=== PATIENT | male | born 2005 | race Caucasian/White ===

== ENCOUNTER 2024-12-06 11:14 | Emergency (ER) | payer OTHER, SELFPAY ==
--- NOTE | ~2024-12-06 | CT_ITS ---
CLINICAL HISTORY: head truama CT cervical spine without intravenous contrast Comparison: None Findings: Craniocervical junction: No occipital condylar fractures. No evidence of atlantooccipital dissociation. The anterior and posterior arch and lateral masses of C1 are intact. Odontoid and atlanto-dental interval intact. The pars interarticularis of C2 is intact. There is normal vertebral body heights with no evidence of compression fracture. There is normal cervical alignment. No locked or perched facets. No spinous process fractures. Lordotic curvature is straightened The retropharyngeal soft tissues are not widened. Segmental analysis as below (MR is more accurate in the evaluation of disc herniation and central canal pathology): C2-C3: No herniation or stenosis. C3-C4: No herniation or stenosis. C4-C5: No herniation or stenosis. C5-C6: No herniation or stenosis. C6-C7: No herniation or stenosis. C7-T1: No herniation or stenosis. The bones are without evidence of lytic or blastic lesion. Lung apices are unremarkable. Impression: 1. Negative CT cervical spine for acute process. This document has been electronically signed by: Alhaji Ascencio MD on 12/06/2024 12:51:02
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
[2024-12-06 11:19] VITALS: BP 114/51; PULSE 100; RESP 19; TEMP 36.6; O2SAT 98; BMI 27.1
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
--- OUTSIDE RECORDS SUMMARY | 2024-12-06 13:43 | XMS_ITS | Clinical Summary ---
Author Organization [facility] Address [address] [place] [address] Care Team Providers Care Tip Scourer Name Role Phone Nayeli Hardin Primary Care Provider [phone] Nayeli Hardin Unavailable [phone] Allergies No known active allergies Medications lidocaine (LIDODERM) 5 % patch Place 1 patch on the skin daily Remove & Discard patch within 12 hours or as directed by 30 patch 02/26/2021 Active Active Problems No known active problems Family History Medical History Relation Name Comments No Known Problems Father No Known Problems Mother Relation Name Status Comments Father Alive Mother Alive Social History Tobacco Use Types Packs/Day Years Used Date Smoking Tobacco: Never Smokeless Tobacco: Never Tobacco Cessation:Counseling Given: Not Answered Alcohol Use Standard Drinks/Week Comments Never 0 (1 standard drink = 0.6 oz pur e alcohol) Sex and Gender Information Value Date Recorded Sex Assigned at Not on file Legal Sex Male 4:07 PM EDT Gender Identity Not on file Sexual Orientation _I choose not to answer 02/27 11:52 AM EDT Last Filed Vital Signs Vital Sign Reading Time Taken Comments Blood Pressure 144/80 01/01/2023 9:49 AM EDT Pulse 63 01/01/2023 9:49 AM EDT Temperature 37.1 ??C (98.7 ??F) 01/01/2023 9:49 AM ED T Respiratory Rate 18 01/01/2023 9:49 AM EDT Oxygen Saturation 100% 01/01/2023 9:49 AM EDT Inhaled Oxygen Concentration - - Weight 86.2 kg (190 lb) 01/01/2023 9:49 AM EDT Height 172.7 cm (5' 8 ) 01/01/2023 9:49 AM EDT Body Mass Index 28.89 01/01/2023 9:49 AM EDT Plan of Treatment Health Maintenance Due Date Last Done Comments Annual Physical 2007 Hepatitis B Screening 2022 COVID-19 Vaccine ( season) 2024 03/02/2021, 02/07/2021 Influenza Vaccine (#1) 2024 , 06/13/2021, 05/31/2020, Additional history exists DTaP,Tdap,and Td Vaccines (7 - Td or Tdap) 04/19/2026 04/19/2016, 12/09/2009, 01/22/2006, Additional history exists HIB Vaccines Completed 08/15/2006, 07/12, 2004 Pneumococcal Vaccines 0-49 yrs (includes High Risk) Aged Out 08/15/2006, 07/23/2005, 03/13/2005, Additional history exists No longer eligible based on patient's age to complete this topic Hepatitis A Vaccine Completed 04/30/2018, 6 Insurance MEDICAID PCP PLAN MEDICAID [facility] Care Teams Tip Scourer Relationship Specialty Start Date End Date Nayeli Hardin [address] [place] [address], [address] [place] [address] PCP - General Pediatrics 02/26/21 Nayeli Hardin NPI: [id number] [place] [address], [address] [place] [address] 02/26/21
--- OUTSIDE RECORDS SUMMARY | 2024-12-06 13:43 | XMS_ITS | Clinical Summary ---
Author Organization [facility] Address [address] [place] [id number] Phone Care Team Providers Care Litigation Services Manager Name Role Phone Nayeli Hardin MD Primary Care Provider [phone] Allergies No known active allergies Medications Medication Sig Dispensed Refills Start Date End Date Status selenium sulfide 2.25 % ShamIndications:Sc alp psoriasis Apply topically 2 (two) times a week. 1 Bottle 3 10/03/2017 Active Additional Information Patient not taking.Reported on 03/11/2023 benzonatate (TESSALON) 100 MG capsuleIndications :Cough Take 1 capsule (100 mg total) by mouth 3 (three) times a day as needed for cough. 30 capsule 05/30/2021 Active Additional Information Patient not taking.Reported on 06/13/2021 methylPREDNISolone (MEDROL DOSEPACK) 4 mg tabletIndications: Poison moses dermatitis follow package directions 21 tablet 03/11/2023 Active Active Problems Problem Noted Date Diagnosed Date BMI 95th percentile or great er with athletic build, pediatric 05/31/2020 Assessment & Plan (05/31/2020 1:47 PM EDT): Intervention for addressing BMI: Weight monitoring and Dietary needs education. decrease nightime snacking, eat more fruits and vegetables and increase physical activity. See ordered lab screens. Reviewed lab orders are sent electronically to [facility] (outside laboratory). No lab slip or appointment needed. Emphasized importance of completing blood work screens. Once labs are drawn, we will send a patient gateway message or call when results received. Recommend follow up in Q6 months to discuss progress towards goals, interventions. Resolved Problems Problem Noted Date Diagnosed Date Resolved Date Elevated blood pressure reading 05/01/2018 06/13/2021 Overview (05/01/2018): Monitor and recheck Assessment & Plan (05/31/2020 1:50 PM EDT): Today - 120/72 - Systolic is at cutoff 2019 - 90/64 2018 - 120/64 Will monitor and recheck next year Pediatric overweight 04/19/2016 017 Overview (04/09/2017): Overweight in childhood Constipation 04/05/2015 04/09/2017 Overview (04/09/2017): Constipation Orbital cellulitis 12/11/2006 7 Overview (04/09/2017): L periorbital cellulitis Orbital cellulitis; L periorbital cellulitis Pneumonia 12/11/2006 04/09/2017 Overview (04/09/2017): Pneumonia Acute otitis media 06/26/2006 7 Overview (04/09/2017): 09/17/05, 04/11/06, 05/10/06, 06/03/06, 06/10/06, 06/26/07, 07/25/07, PE tubes 07/30/07 Acute otitis media; 09/17/05, 04/11/06, 05/10/06, 06/03/06, 06/10/06, 06/26/07, 07/25/07, PE tubes 07/30/07 Wheezing 07/23/2005 04/09/2017 Overview (10/01/2014): Wheeze; alb neb age 2 mos and 4 mos Immunizations Name Administration Dates Next Due COVID-19 (Pre-06/03) Pfizer Vaccine, mRNA, PF 03/02/2021,02/07/2021 DTaP, unspecified formulation 12/09/2009, 005 DTaP-Hep B-IPV 01/22/2006,07/23/2005,2004 HPV9 04/09/2017,05/02/2016 Hepatitis A, ped/adol, 2 dose 04/30/2018, 016 Hepatitis B, unspecified formulation 03/06/2005, 2004 Hib, unspecified formulation 08/15/2006,07/23/20 05,2004 Influenza Quadrivalent Prese rvative Free IM 06/19/2022,06/13/2021,05/31/2020,05/20,04/30/2018,04/19/2016,04/05/2015 ,04/06/2014,05/16/2013 Influenza Quadrivalent w/ Pr eservative IM 05/06/2017 Influenza, Unspecified Formulation 07/07,05/27/2007,06/26/2006,07/23 MMR 12/09/2009,01/22/2006 Meningococcal B, OMV (MenB-4C) 06/19/2022,2020 Meningococcal MCV4P 06/13/2021,04/19/2016 Pneumococcal conjugate, PCV 7 08/15/2006 ,07/23/2005,03/13/2005,12/11 Polio, Unspecified Formulation 12/09/2009,2004 Tdap 04/19/2016 Varicella 12/09/2009,01/22/2006 Family History Medical History Relation Comments Drug abuse Father Psoriasis Maternal Aunt Drug abuse Mother Arthritis Paternal Grandfather Hyperlipidemia Paternal Grandfather Stroke Paternal Grandfather Arthritis Paternal Grandmother Diabetes Paternal Grandmother Hyperlipidemia Paternal Grandmother Relation Status Comments Brother Alive Father Alive Maternal Aunt Mother Alive Paternal Grandfather Alive Paternal Grandmother Alive Sister Alive Social History Tobacco Use Types Packs/Day Years Used Date Smoking Tobacco: Never Passive Smoke Exposure: Yes Smokeless Tobacco: Never Tobacco Cessation:Counseling Given: Not Answered Comments:parent outside Alcohol Use Standard Drinks/Week Comments Never 0 (1 standard drink = 0.6 oz pur e alcohol) Child or Family Care Answer Date Record ed Do you have problems with on e of the following making it difficult for you to work, study, or receive health care? No 06/19/2022 Education Answer Date Recorded Are you interested in more education? Not on sunshine e 06/23/2024 Are you concerned about learning? Not on file 06/23/2024 No 06/23/2024 No 06/23/2024 Food Answer Date Recorded Within the past 6 months we worried whether our food would run out before we got money to buy more. Never True 06/19/2022 Within the past 6 months the food we bought just didn't last and we didn't have enough money to get more. Never True Residential Stability Answer Date Recor ded What is your housing situation today? I have estrella sing 06/19/2022 How many times have you move d in the past 12 months? Zero (I did not move) 06/19/2022 Paying for Meds Answer Date Recorded Do you have trouble paying for medicines? No 06/19/2022 Paying Utility Bills Answer Date Record ed Do you have trouble paying your heating or elect ricity bill? No 06/19/2022 Transportation Answer Date Recorded Has the lack of transportati on kept you from medical appointments or from getting medications? No 06/19/2022 Unemployment Answer Date Recorded Are you currently unemployed or working on a part-time or temporary basis, and looking for work? No 06/19/2022 Digital Access Answer Date Recorded No 01/01/2023 No 01/01/2023 Reliable internet access at home? Not on file 01/01/2023 Device with a working camera? Not on file Sex and Gender Information Value Date Recorded Sex Assigned at Male 05/20/2019 2:23 PM EDT Gender Identity Male 05/20/2019 2:23 PM EDT Sexual Orientation Straight 06/13/2021 10 :01 AM EDT Last Filed Vital Signs Vital Sign Reading Time Taken Comments Blood Pressure 120/70 06/19/2022 10:16 AM EST Pulse 70 06/19/2022 10:16 AM EST Temperature 36.8 ??C (98.2 ??F) 03/11/2023 10:40 AM E DT Respiratory Rate 16 06/19/2022 10:16 AM EST Oxygen Saturation - - Inhaled Oxygen Concentration - - Weight 88 kg (194 lb) 03/11/2023 10:40 AM EDT Height 172 cm (5' 7.72 ) 06/19/2022 10:16 AM EST Body Mass Index - - Plan of Treatment Health Maintenance Due Date Last Done Comments SMOKING Hx and SMOKELESS TOBACCO SCREENING 2017 ADOLESCENT UNIVERSAL LIPID SCREENING 2021 HEPATITIS B SCREENING 2022 HEPATITIS C SCREENING 2022 HIV ONE-TIME SCREENING (18-65 YEARS) 2022 BMI ASSESSMENT 06/19/2023 06/19/2022 DEPRESSION SCREENING 06/19/2023 06/19/2022, 06/19/20 DEVELOPMENTAL/BEHAVIORAL SCREENING (PHQ, PSC, or SWYC) 06/19/2023 06/19/2022, 06/19/2022, 06/19/2022 INFLUENZA VACCINE (#1) 2024 , 06/13/2021, 05/31/2020, Additional history exists COVID-19 VACCINE ( season) 2024 03/02/2021, 02/07/2021 COMBINED DTaP,Tdap,Td (7 - Td or Tdap) 04/19/2026 04/19/2016, 12/09/2009, 01/22/2006, Additional history exists HEPATITIS B VACCINES Completed 01/22/2006, 07/23/2005, 03/06/2005, Additional history exists HIB VACCINES Completed 08/15/2006, 07/12, 2004 PNEUMOCOCCAL VACCINES (0-49 years) Aged Out 08/15/2006, 07/23/2005, 03/13/2005, Additional history exists No longer eligible based on patient's age to complete this topic MMR VACCINES Completed 12/09/2009, 01/22/2006 VARICELLA VACCINES Completed 12/09/2009, 01/22/2006 HPV VACCINES Completed 04/09/2017, 05/02/2016 HEPATITIS A VACCINES Completed 04/30/2018, 05/02/20 16 MENINGOCOCCAL VACCINES (ACWY) Completed 06/13/2021, 04/19/2016 Medical Devices Not on file Care Teams Litigation Services Manager Relationship Specialty Start Date End Date Nayeli Hardin MD [address] [place] [address] [email or web address] PCP - General Pediatrics 03/12/17 Additional Source Comments The information contained in this document represents components of the legal health record. It is not the complete legal health record.[facility]
[2024-12-06 13:55] VITALS: BP 114/51; PULSE 100; RESP 19; TEMP 36.6; O2SAT 98
== END 2024-12-06 13:57 | disposition home or self-care (01) ==
PROVIDERS: Emergency Provider Emergency Medicine
DX: S06.0X0A Concussion without loss of consciousness, initial encounter (principal); W21.89XA Striking against or struck by other sports equipment, initial encounter; Y93.71 Activity, boxing; Y92.9 Unspecified place or not applicable; Y99.9 Unspecified external cause status; R11.2 Nausea with vomiting, unspecified; R51.9 Headache, unspecified
CPT/HCPCS: 70450; 72125; 99282; 99284

== ENCOUNTER → 2024-12-06 11:25 | Outpatient (BNV) | payer SELFPAY | PROVIDERS: Emergency Provider Emergency Medicine; Visit Provider Radiology Diagnostic Radiology | DX: S00.93XA Contusion of unspecified part of head, initial encounter (principal) | CPT/HCPCS: 70450; 72125 ==